=== PATIENT | male | born 1965 | race Caucasian/White ===

== ENCOUNTER 2017-07-21 08:32 | Outpatient (CLI) | payer OTHER | END 2017-08-04 | disposition home or self-care (01) | LOC: PCVCIMAG 08:32 | DX: I45.10 Unspecified right bundle-branch block (principal); R53.83 Other fatigue; R00.2 Palpitations; R94.31 Abnormal electrocardiogram [ECG] [EKG] | CPT/HCPCS: 93017; 93306 ==